=== PATIENT | male | born 1970 | race Caucasian/White ===

== ENCOUNTER 2017-12-11 18:25 | Emergency (ER) | payer BC, SELFPAY ==
[2017-12-11 18:27] VITALS: BP 162/107; PULSE 121; RESP 18; TEMP 37.3; O2SAT 98; BMI 59.8
--- NOTE | 2017-12-11 19:00 | CT_ITS ---
STUDY: CT ABDOMEN AND PELVIS WITH CONTRAST REASON FOR EXAM: Male, 47 years old. Diverticulitis. RADIATION DOSAGE (If Supplied By Facility): CTDIvol = ( 28.35 ) mGy, DLP = ( 1423.44 ) mGycm TECHNIQUE: Transaxial images were obtained from the dome of the diaphragm to the symphysis pubis without oral contrast. 100ML ml of Isovue 300 contrast was administered. Sagittal and coronal images were reconstructed. Individualized dose optimization techniques were used for this CT. COMPARISON: None. FINDINGS: The visualized lung bases are unremarkable. The visualized portions of the heart are within normal limits. Normal liver. Normal gallbladder and extrahepatic biliary system. Normal spleen. Normal pancreas. Normal bilateral adrenal glands. Normal right kidney. Normal left kidney. Normal visualized stomach. Normal small intestine. There is noted multiple diverticula of the sigmoid with mild areas of inflammatory stranding as seen on series 1002 image 118 with no evidence of large fluid collection or abscess. There is non-visualization of the appendix. Normal abdominal aorta. Normal inferior vena cava. Normal retroperitoneum. Normal urinary bladder. Normal abdominal wall. Normal osseous structures. CT/Abdomen/Pelvis WITH Contrast IMPRESSION: 1. Findings consistent with mild sigmoid diverticulitis as above. No evidence of large fluid collection or abscess. Electronically Signed: Jhonatan La DO at 21:26 EDT , Service support ,
--- NOTE | 2017-12-11 19:08 | ED.DCSUM_ITS ---
- ER Visit Summary Date of Service: 12/11/17 Chief Complaint: Abdominal pain History of Present Illness: The patient is a 47 M presenting with abdominal pain ?8 days. Patient states he has a history of diverticulitis in the past and this feels similar. He has nausea with no vomiting. He denies diarrhea or constipation. He has had decreased appetite. Denies urinary complaints. Denies fever. Denies other complaints. Physical Examination: Vitals are stable. Patient is afebrile. Alert no acute distress. HEENT exam is unremarkable. Neck is supple. Lungs are clear and equal bilaterally. Heart is regular rate and rhythm. Abdomen is soft, obese, bilateral lower quadrant tenderness, no rebound or guarding Extremities are unremarkable. Skin is warm and dry. No focal neurologic deficit. Remainder of exam is unremarkable. Emergency Department Course and Treatment: Patient is given morphine, Zofran. CBC, chemistries unremarkable except glucose 179. Urinalysis shows 0-5 white blood cells, [address] abdomen pelvis shows findings consistent with mild sigmoid diverticulitis. No evidence of large fluid collection or abscess. Patient was given Cipro, Flagyl. Advised to follow-up with his primary care physician. Advised return to ED if worsening complaints. Disposition: Discharge home Impression: Diverticulitis This note was generated with [employer] dictation software. It may contain incorrect words, spelling, and punctuation that were not noted in review of the chart prior to signing ED Disposition - Plan for ED Patient: Chief Complaint: Abd Pain Referrals: Care Physician,No Primary [Primary Care Provider] -
[2017-12-11 19:11] LABS: Bacteria 0 SEEN /hpf (None Seen); Red Blood Cells-Urine 0 SEEN /hpf (0-5); Squamous Epithelial Cells - UA 0 SEEN /hpf (0-5)
[2017-12-11 19:18] LABS: Absolute Lymphocyte Count 2.53 X10^3/ul (0.83-4.51); Basophil# 0.04 X10^3/uL; Basophil% 0.5 % (0-1); Eosinophil# 0.35 X10^3/uL; Hematocrit 46.6 % (40-54); Hemoglobin 15.9 g/dl (13.0-16.5); Lymphocyte # 2.53 X10^3/ul (4.0); Mean Corp Hgb Conc 34.1 g/gl (32-36); Mean Corpuscular Hgb 29.6 pg (27.0-32.0); Mean Corpuscular Volume 86.6 fL (80-94); Mean Platelet Vol. 11.8 fl (6.2-12.0); Monocyte# 0.83 X10^3/uL; Monocyte% 9.5 % (0-10); Neutrophil # 4.95 X10^3/uL (2.7-7.7); Neutrophil % 56.9 % (47-70); POSITIVE COUNT NO; POSITIVE DIFFERENTIAL NO; POSITIVE MORPHOLOGY NO; Platelet Count 150 K/mm3 (150-450); RBC Distribution Width CV 13.4 % (11.6-14.6); RBC Distribution Width SD 42.4 fl (35.1-43.9); Red Blood Count 5.38 M/mm3 (4.6-6.2); White Blood Count 8.7 K/mm3 (4.4-11.0)
--- NOTE | 2017-12-11 19:20 | NURSING ---
PT REFUSED PAIN MEDS AT THIS TIME.
[2017-12-11 19:24] LABS: Anion Gap 9 (5-15); BUN 7 mg/dL (7-18); BUN/Creat Ratio 7.1 RATIO (10-20); Calcium,Total 11.5 mg/dL (8.5-10.1); Chloride 103 mmol/L (98-107); Creatinine, Serum 0.99 mg/dL (0.70-1.30); EST Glomerular Filtration Rate 86 mL/min (>60); Est Glom Filt Rate - Afr Amer 104 mL/min (>60); Estimated Creatinine Clearance 106.09 ml/min; Glucose 179 mg/dL (74-106); Potassium 4.1 mmol/L (3.5-5.1); Sodium Level 137 mmol/L (136-145)
[2017-12-11 19:38] LABS: Color, Urine Amber (Yellow); Glucose, Dipstick Normal (Normal); Ketone-Dipstick 50 mg/dl (Negative); Leukocyte Esterase-Dipstick 25 /ul (Negative); Nitrite-Dipstick Positive (Negative); Occult Blood-Urine Negative /ul (Negative); Protein-Dipstick 100 mg/dl (Negative); Urine Bilirubin Dipstick Negative (Negative); Urine Clarity Sl. Cloudy (Clear); Urine Urobilinogen 4 mg/dl (Normal)
[2017-12-11 19:47] LABS: White Blood Cells 0-5 SEEN /hpf (0-5)
[2017-12-11 19:48] LABS: Fine Granular Cast- Urine 0-5 SEEN /lpf (0-5); Hyaline Cast 0-5 SEEN /lpf (0-5); Mucous, Urine 2+ /hpf (<or=2+)
[2017-12-11 19:49] LABS: Calcium Oxalate Crystals Ur 1+ /hpf (<or=2+)
[2017-12-11 20:46] VITALS: PULSE 90; RESP 18; O2SAT 97
[2017-12-11 20:48] VITALS: BP 154/87
--- NOTE | 2017-12-11 22:52 | ED.DEP ---
ED Disposition - Plan for ED Patient: Chief Complaint: Abd Pain Instructions: ED Diverticulitis Prescriptions: Metronidazole [Flagyl] 500 mg PO Q8H #21 tablet Naproxen [Naprosyn] 500 mg PO BID PRN #20 tablet Ciprofloxacin [Cipro] 500 mg PO BID #14 tablet Referrals: Care Physician,No Primary [Primary Care Provider] -
[2017-12-11] MEDS: Naproxen 500 MG Tablet PO (22:56)
[2017-12-11] MEDS: Ciprofloxacin 500 MG Tablet PO (22:56)
[2017-12-11] MEDS: metroNIDAZOLE 500 MG Tablet PO (22:56)
[2017-12-11 23:07] VITALS: BP 140/80; PULSE 76; RESP 18; O2SAT 94
== END 2017-12-11 23:17 | disposition home or self-care (01) ==
PROVIDERS: Emergency Provider Emergency Medicine
DX: K57.32 Diverticulitis of large intestine without perforation or abscess without bleeding (principal); Z87.19 Personal history of other diseases of the digestive system
CPT/HCPCS: 74177; 80048; 81001; 85025; 99285; J7030; Q9967; J2405

== ENCOUNTER 2017-12-12 13:35 | Inpatient (IN) | payer BC, SELFPAY ==
[2017-12-12 13:36] VITALS: BP 144/92; PULSE 123; RESP 16; TEMP 36.8; O2SAT 97; BMI 59.7
--- NOTE | 2017-12-12 13:57 | ED.VISSUMM ---
- ER Visit Summary Date of Service: 12/12/17 Chief Complaint: Abdominal pain History of Present Illness: The patient is a 47 M presents to the emergency department with worsening abdominal pain. The patient was seen here yesterday. At that time, he was having abdominal pain for about a week. He underwent CT of the abdomen and pelvis which did confirm uncomplicated diverticulitis. The patient was started on Cipro and Flagyl. He was given Naprosyn. He states he has been taking the antibiotics. When he woke today, his pain was worse. He describes it as a band across his abdomen. He denies any fevers or chills. He has been nauseated to did have some diarrhea. He states the pain worsened on his way here. He states now, the pain is mildly improved, but he still having significant cramping across his abdomen. He has had diverticulitis a total of 7 times. He has no history of abdominal surgery. Physical Examination: Vital signs reviewed General: Well-nourished, well-developed Head: Normocephalic, atraumatic Eyes: Pupils equal and reactive, extraocular muscles intact Neck, supple, no lymphadenopathy Heart: Regular rate and rhythm Respiratory: No distress, clear bilaterally Abdomen: Soft, nontender, nondistended, no peritoneal signs Back: Nontender Extremities: Nontender, no edema, no cords Skin: Normal color no rash Neuro: Alert and oriented, no focal or lateralizing deficits Test Results: [] Emergency Department Course and Treatment: The patient presents with increasing pain despite treatment with oral antibiotics. He was mildly tender, but had no focal rebound or guarding. No peritoneal signs. IV was established. He was treated with antiemetics and analgesics with some improvement. The patient did complain of trace chest pain when he felt like he had to belch. EKG was obtained which was unremarkable. Patient does have mild elevation of his lactate of 2.5. However, in light of his infection I do feel it is likely the cause. The patient was started on broad-spectrum IV antibiotics. Given his persistent pain I do feel that he will require admission for IV antibiotics and pain control. Patient was discussed with the hospitalist and surgery. He will be admitted at this time. Treatment Plan: [] Disposition: Admission Impression: 1. Diverticulitis This note was generated with [employer] software. It may contain incorrect words, spelling, and punctuation that were not noted in review of the chart prior to signing ED Disposition - Plan for ED Patient: Chief Complaint: Abd Pain Referrals: Care Physician,No Primary [Primary Care Provider] -
[2017-12-12] MEDS: 0.9% Normal Saline 1,000 ML 1000 ML IV (14:04)
[2017-12-12] MEDS: Morphine 4 MG/ML Syringe IV ×2 (14:04→19:40)
[2017-12-12 14:17] LABS: Absolute Lymphocyte Count 2.69 X10^3/ul (0.83-4.51); Absolute Neutrophil Count 8.1 X10^3/uL (2.0-7.7); Basophil# 0.04 X10^3/uL; Basophil% 0.3 % (0-1); Eosinophils% 1.7 % (0-5); Hematocrit 48.1 % (40-54); Hemoglobin 16.3 g/dl (13.0-16.5); Lymphocyte # 2.69 X10^3/ul (4.0); Lymphocyte % 22.3 % (19-41); Mean Corp Hgb Conc 33.9 g/gl (32-36); Mean Corpuscular Hgb 29.5 pg (27.0-32.0); Mean Platelet Vol. 11.5 fl (6.2-12.0); Monocyte# 0.99 X10^3/uL; Monocyte% 8.2 % (0-10); Neutrophil # 8.12 X10^3/uL (2.7-7.7); Neutrophil % 67.4 % (47-70); POSITIVE COUNT NO; POSITIVE DIFFERENTIAL NO; POSITIVE MORPHOLOGY NO; Platelet Count 179 K/mm3 (150-450); RBC Distribution Width CV 13.6 % (11.6-14.6); RBC Distribution Width SD 43.3 fl (35.1-43.9); Red Blood Count 5.53 M/mm3 (4.6-6.2); White Blood Count 12.1 K/mm3 (4.4-11.0)
--- NOTE | 2017-12-12 14:17 | EKGRS_ITS ---
Test Reason : ABNL PAIN Blood Pressure : / mmHG Vent. Rate : 080 BPM Atrial Rate : 080 BPM P-R Int : 152 ms QRS Dur : 090 ms QT Int : 354 ms P-R-T Axes : 042 028 015 degrees QTc Int : 408 ms Normal sinus rhythm Normal ECG Confirmed by DANIKA ARMENTA, MEGAN ([id number]), movie editor ANN AREVALO ([id number]) on 12/13/2017 12:58:10 PM Referred By: KALIE Confirmed By:MEGAN GARNICA MD
[2017-12-12] MEDS: Ondansetron 4 MG/2 ML Vial IV (14:18)
[2017-12-12 14:28] LABS: AST(SGOT) 76 U/L (15-37); Alanine Aminotransfer ALT/SGPT 96 U/L (16-61); Albumin, Serum 3.7 g/dL (3.2-5.0); Alkaline Phosphatase 97 U/L (45-117); Anion Gap 10 (5-15); BUN 8 mg/dL (7-18); Calcium,Total 11.2 mg/dL (8.5-10.1); Chloride 104 mmol/L (98-107); EST Glomerular Filtration Rate 85 mL/min (>60); Est Glom Filt Rate - Afr Amer 103 mL/min (>60); Estimated Creatinine Clearance 105.03 ml/min; Globulin 3.8 g/dL (2.2-4.2); Glucose 210 mg/dL (74-106); Protein, Total 7.5 g/dL (6.4-8.2); Sodium Level 139 mmol/L (136-145)
[2017-12-12 14:33] LABS: Lactic Acid 2.5 mmol/L (0.4-2.0)
--- NOTE | 2017-12-12 14:33 | ED.RN ---
LAB RESULTED LACTIC 2.5, PHYSICIAN NOTIFIED
[2017-12-12 15:03] VITALS: BMI 59.7
--- NOTE | 2017-12-12 15:04 | CT_ITS ---
STUDY: CT ABDOMEN AND PELVIS WITHOUT CONTRAST REASON FOR EXAM: Male, 47 years old. Mid abdominal pain RADIATION DOSAGE (If Supplied By Facility): CTDIvol = ( 34.45 ) mGy, DLP = ( 2100.46 ) mGycm TECHNIQUE: Transaxial images were obtained from the dome of the diaphragm to the symphysis pubis without oral contrast, and without intravenous contrast. Sagittal and coronal images were reconstructed. Individualized dose optimization techniques were used for this CT. COMPARISON: December 11, 2018 FINDINGS: The visualized lung bases are unremarkable. The visualized portions of the heart are within normal limits. Liver is prominent and fatty infiltrated without mass or bile duct dilatation. The appears to be very subtle hypoattenuated density within the gallbladder possibly representing sludge or tiny poorly calcified stones.. Mild prominence of the spleen demonstrating normal attenuation . Diffusely fatty infiltrated pancreas Normal bilateral adrenal glands. Normal right kidney. Normal left kidney. Normal visualized stomach. There are several distended loops of small bowel within the left upper and mid abdomen without definitive evidence for transition point which may be consistent with focal ileus possibly due to enteritis. There are subcentimeter mesenteric nodes and stranding in the fat consistent with nonspecific lymphadenitis Diverticular disease of the descending and sigmoid colon with very mild stranding in the fat and possibility of associated mild diverticulitis not excluded. Appendix not visualized Normal abdominal aorta. Normal inferior vena cava. Normal retroperitoneum. Normal urinary bladder. Normal abdominal wall. Lumbar spine demonstrates moderate spondylosis CT/Abdomen/Pel W ORAL Cont Only IMPRESSION: Distended loops of small bowel in the left upper and mid abdomen which may be consistent with nonspecific focal ileus in association with mesenteric lymphadenitis. No definite evidence for small bowel obstruction transition point. Cannot exclude coexisting mild sigmoid diverticulitis Electronically Signed: Jose Angel Jones MD at 17:31 EDT , Service support ,
[2017-12-12] MEDS: HYDROmorphone 1 MG/ML Syringe IV ×3 (15:18→21:14)
[2017-12-12 15:41] VITALS: PULSE 90; RESP 18
[2017-12-12 16:01] VITALS: BP 156/88; PULSE 81; RESP 18; O2SAT 93
[2017-12-12 18:02] VITALS: RESP 16
[2017-12-12 18:05] LABS: Reflex Lactate? Y
[2017-12-12 18:46] VITALS: BMI 59.3
[2017-12-12 18:51] VITALS: BP 158/96; PULSE 84; RESP 16; TEMP 36.4; O2SAT 94
--- NOTE | 2017-12-12 18:52 | PCM.HP.STD ---
Problem List (1) Mid abdominal pain Status: Acute (2) Diverticulitis Status: Acute History of Present Illness Date of Admission: 12/12/17 Chief Complaint: Mid abdominal pain, diverticulitis The patient is a 47 year old M who was seen in the emergency room at [facility] with chief complaint of midabdominal pain which started this morning, there is no vomiting, he did have 2 episodes of diarrhea, he denies any hematochezia, he denies any chills or fever. Patient states he has had several episodes of diverticulitis, he does not remember anyone telling him that he needed surgery after any of his diverticulitis episodes, and the patient states that he has not sure he is never seen a surgeon. Patient was seen in the emergency room yesterday with left lower quadrant abdominal pain was diagnosed as having diverticulitis, he was placed on oral antibiotics which he has been taking, and discharged home.. Evaluation in the emergency room today included labs which showed an elevated white blood cell count 12.1, lactic acid was 2.5, glucose was 210, and the patient was afebrile at 98.3. Hospitalist service was called to admit the patient for diverticulitis, I requested that the emergency room physician contact general surgery and general surgery requested a oral contrasted CT which was performed that showed no evidence of perforation. It was noted on this second CT that the patient had what was believed to be an ileus. Patient will be admitted to [facility] for acute recurrent diverticulitis and ileus, he will be given IV fluids and IV antibiotics, I do not believe the patient has sepsis or severe sepsis, patient had initial tachycardia on his first set of vital signs, afterwards there was no tachycardia and therefore I do not believe he meets SIRS criteria. Past Medical History Past Medical History (Chronic Problems): Chronic Problems Diverticulosis of colon (Chronic) Steatohepatitis, nonalcoholic (Chronic) GERD (gastroesophageal reflux disease) (Chronic) Morbid obesity with BMI of 50.0-59.9, adult (Chronic) Allergies corn [[place]] Allergy (Verified 12/12/17 13:39) Other venom-honey bee [bee venom (honey bee)] Allergy (Verified 12/12/17 13:39) Swelling wheat Allergy (Verified 12/12/17 13:39) Other Home Medications: Ambulatory Orders Medication Instructions Recorded Ciprofloxacin [Cipro] 500 mg PO BID #14 tablet 12/11/17 Metronidazole [Flagyl] 500 mg PO Q8H #21 tablet 12/11/17 Naproxen [Naprosyn] 500 mg PO BID PRN #20 tablet 12/11/17 Surgical History: no surgical history Psychiatric History: No pertinent psych hx Lives: Spouse/ Significant Other Smoking Status: Never smoker Tobacco Use: Non-smoker Alcohol: None Drugs: None - *Family History Maternal History Items: - Paternal History Items: Heart Disease - in his 40s Review of Systems Constitutional: Denies: Anorexia, Chills, Fever, Night Sweats, Malaise, Weakness, Weight Change, Fatigue Eyes: Denies: Blurred vision, Cataracts, Conjunctivae Inflammation, Double vision, Drainage HEENT: Denies: Difficulty Swallowing, Dysphasia, Ear Pain, Eye Pain, Head Aches, Hearing Changes, Nasal bleeding, Nasal Congestion, Post Nasal Drip Cardiovascular: Denies: Chest Pain, Claudication, Chest Pressure, Chest Tightness, Edema, Heaviness, Orthopnea, Palpitations, Paroxysmal Noc. Dyspnea, Syncope Respiratory: Denies: Cough, Hemoptysis, Pleuritic Pain, Shortness of breath at rest, Shortness of breath upon exertion, Sputum production, Wheezing Gastrointestinal: Reports: Abdominal Pain, Diarrhea. Denies: Constipation, Dyspepsia, Hematemesis, Hematochezia, Nausea, Melena, Vomiting Genitourinary: Denies: Dysuria, Frequency, Hematuria, Hesitancy, Incontinence, Nocturia, Urgency Musculoskeletal: Denies: Back Pain, Foot Pain, Hand Pain, Joint Pain, Joint stiffness, Joint swelling, Joint Tenderness, Leg Pain Skin: Denies: Dryness, Jaundice, Pruritis, Rash Neurological: Denies: Blurred vision, Double vision, Change in Speech, Slurred speech, Difficulty swallowing, Focal weakness, Headaches, Incoordination, Numbness, Tingling Psychiatric: Denies: Anxiety, Depression, Homicidal Ideations, Suicidal Ideations Endocrine: Denies: Change in Body Habitus, Heat/ Cold Intolerance, Polydipsia, Polyuria Hematologic/ Lymphatic: Denies: Adenopathy, Anemia, Easy Bruising, Easy Bleeding, Petechiae, Purpura VTE Information - Inpt Only VTE Present on Admission: No VTE Mechan Device Prophylaxis: None VTE Pharm Prophylaxis ordered?: Yes Patient Problems: Active and Suspected Problems Mid abdominal pain (Acute) Diverticulitis (Acute) - Physical Exam General: Alert, Oriented x3, Cooperative, No apparent distress, Well developed, Well nourished HEENT: Atraumatic, PERRLA, EOMI, Normocephalic Oral: Moist Mucosa Neck: Supple, No JVD, Negative Carotid Bruits, No Nuchal Rigidity, Trachea Midline, Thyroid Normal Size and Texture Lungs: Clear to auscultation, Normal air movement, No rhonchi, No wheeze Cardiovascular: Regular rate, Regular Rhythm, Normal S1, Normal S2, No murmurs, No Ectopic Activity, PMI Normal, No rub noted, No Gallop Abdomen: Bowel Sounds Present, Soft, Hypoactive Bowel Sounds, Obese, Tender - Mid abdominal tenderness is noted to palpation which is moderate, there is slight abdominal tenderness and left lower quadrant to palpation, No hernias noted Extremities: No clubbing, No cyanosis, Capillary Refill Less than 3 Seconds, Edema - +1 mm pitting edema is noted over the patient's lower legs Skin: No rashes, No breakdown Musculoskeletal: No Tenderness to Palpation of Joints or Extremities Neurological: Cranial nerves II-XII grossly intact, Neuro grossly intact, Sensory exam intact to light touch and pain, Coordination normal Psych/Mental Status: Normal Affect, Appropriate, Alert and oriented to time, place, person, mood and affect Vital Signs Temp Pulse Resp BP Pulse Ox 97.5 F L 84 16 171/105 H 94 12/12/17 18:51 12/12/17 18:51 12/12/17 18:51 12/12/17 18:51 12/12/17 18:51 Oxygen Delivery Method Room Air Weight: 210 kg Body Mass Index (BMI) 59.3 Laboratory Tests Past 24 Hrs 12/12/17 18:25 Lactic Acid Pending Assessment/Plan All Active Problems Mid abdominal pain (Acute) Diverticulitis (Acute) #1 acute recurrent diverticulitis-patient will be admitted to [facility] 3, IV Cipro and Flagyl will be given, labs will be monitored, patient will be seen by general surgery #2 ileus-possibly secondary to acute diverticulitis, patient will be placed on clear liquids and seen by general surgery #3 morbid obesity #4 hyperglycemia-hemoglobin A1c will be obtained Again, I do not believe the patient has severe sepsis Code Visit Inpatient E&M: 19843 Init Hosp L3
[2017-12-12] MEDS: 0.9% Normal Saline 1,000 ML 100 ML IV (18:55)
[2017-12-12] MEDS: Morphine 2 MG/ML Syringe IV (18:55)
--- NOTE | 2017-12-12 19:02 | HP.PCM_ITS ---
Problem List (1) Mid abdominal pain Status: Acute (2) Diverticulitis Status: Acute History of Present Illness Date of Admission: 12/12/17 Chief Complaint: Mid abdominal pain, diverticulitis The patient is a 47 year old M who was seen in the emergency room at [facility] with chief complaint of midabdominal pain which started this morning, there is no vomiting, he did have 2 episodes of diarrhea, he denies any hematochezia, he denies any chills or fever. Patient states he has had several episodes of diverticulitis, he does not remember anyone telling him that he needed surgery after any of his diverticulitis episodes, and the patient states that he has not sure he is never seen a surgeon. Patient was seen in the emergency room yesterday with left lower quadrant abdominal pain was diagnosed as having diverticulitis, he was placed on oral antibiotics which he has been taking, and discharged home.. Evaluation in the emergency room today included labs which showed an elevated white blood cell count 12.1, lactic acid was 2.5, glucose was 210, and the patient was afebrile at 98.3. Hospitalist service was called to admit the patient for diverticulitis, I requested that the emergency room physician contact general surgery and general surgery requested a oral contrasted CT which was performed that showed no evidence of perforation. It was noted on this second CT that the patient had what was believed to be an ileus. Patient will be admitted to [facility] for acute recurrent diverticulitis and ileus, he will be given IV fluids and IV antibiotics, I do not believe the patient has sepsis or severe sepsis, patient had initial tachycardia on his first set of vital signs, afterwards there was no tachycardia and therefore I do not believe he meets SIRS criteria. Past Medical History Past Medical History (Chronic Problems): Chronic Problems Diverticulosis of colon (Chronic) Steatohepatitis, nonalcoholic (Chronic) GERD (gastroesophageal reflux disease) (Chronic) Morbid obesity with BMI of 50.0-59.9, adult (Chronic) Allergies corn [[place]] Allergy (Verified 12/12/17 13:39) Other venom-honey bee [bee venom (honey bee)] Allergy (Verified 12/12/17 13:39) Swelling wheat Allergy (Verified 12/12/17 13:39) Other Home Medications: Ambulatory Orders Medication Instructions Recorded Ciprofloxacin [Cipro] 500 mg PO BID #14 tablet 12/11/17 Metronidazole [Flagyl] 500 mg PO Q8H #21 tablet 12/11/17 Naproxen [Naprosyn] 500 mg PO BID PRN #20 tablet 12/11/17 Surgical History: no surgical history Psychiatric History: No pertinent psych hx Lives: Spouse/ Significant Other Smoking Status: Never smoker Tobacco Use: Non-smoker Alcohol: None Drugs: None - *Family History Maternal History Items: - Paternal History Items: Heart Disease - in his 40s Review of Systems Constitutional: Denies: Anorexia, Chills, Fever, Night Sweats, Malaise, Weakness , Weight Change, Fatigue Eyes: Denies: Blurred vision, Cataracts, Conjunctivae Inflammation, Double vision, Drainage HEENT: Denies: Difficulty Swallowing, Dysphasia, Ear Pain, Eye Pain, Head Aches , Hearing Changes, Nasal bleeding, Nasal Congestion, Post Nasal Drip Cardiovascular: Denies: Chest Pain, Claudication, Chest Pressure, Chest Tightness, Edema, Heaviness, Orthopnea, Palpitations, Paroxysmal Noc. Dyspnea, Syncope Respiratory: Denies: Cough, Hemoptysis, Pleuritic Pain, Shortness of breath at rest, Shortness of breath upon exertion, Sputum production, Wheezing Gastrointestinal: Reports: Abdominal Pain, Diarrhea. Denies: Constipation, Dyspepsia, Hematemesis, Hematochezia, Nausea, Melena, Vomiting Genitourinary: Denies: Dysuria, Frequency, Hematuria, Hesitancy, Incontinence, Nocturia, Urgency Musculoskeletal: Denies: Back Pain, Foot Pain, Hand Pain, Joint Pain, Joint stiffness, Joint swelling, Joint Tenderness, Leg Pain Skin: Denies: Dryness, Jaundice, Pruritis, Rash Neurological: Denies: Blurred vision, Double vision, Change in Speech, Slurred speech, Difficulty swallowing, Focal weakness, Headaches, Incoordination, Numbness, Tingling Psychiatric: Denies: Anxiety, Depression, Homicidal Ideations, Suicidal Ideations Endocrine: Denies: Change in Body Habitus, Heat/ Cold Intolerance, Polydipsia, Polyuria Hematologic/ Lymphatic: Denies: Adenopathy, Anemia, Easy Bruising, Easy Bleeding , Petechiae, Purpura VTE Information - Inpt Only VTE Present on Admission: No VTE Mechan Device Prophylaxis: None VTE Pharm Prophylaxis ordered?: Yes Patient Problems: Active and Suspected Problems Mid abdominal pain (Acute) Diverticulitis (Acute) - Physical Exam General: Alert, Oriented x3, Cooperative, No apparent distress, Well developed, Well nourished HEENT: Atraumatic, PERRLA, EOMI, Normocephalic Oral: Moist Mucosa Neck: Supple, No JVD, Negative Carotid Bruits, No Nuchal Rigidity, Trachea Midline, Thyroid Normal Size and Texture Lungs: Clear to auscultation, Normal air movement, No rhonchi, No wheeze Cardiovascular: Regular rate, Regular Rhythm, Normal S1, Normal S2, No murmurs, No Ectopic Activity, PMI Normal, No rub noted, No Gallop Abdomen: Bowel Sounds Present, Soft, Hypoactive Bowel Sounds, Obese, Tender - Mid abdominal tenderness is noted to palpation which is moderate, there is slight abdominal tenderness and left lower quadrant to palpation, No hernias noted Extremities: No clubbing, No cyanosis, Capillary Refill Less than 3 Seconds, Edema - +1 mm pitting edema is noted over the patient's lower legs Skin: No rashes, No breakdown Musculoskeletal: No Tenderness to Palpation of Joints or Extremities Neurological: Cranial nerves II-XII grossly intact, Neuro grossly intact, Sensory exam intact to light touch and pain, Coordination normal Psych/Mental Status: Normal Affect, Appropriate, Alert and oriented to time, place, person, mood and affect Vital Signs Temp Pulse Resp BP Pulse Ox 97.5 F L 84 16 171/105 H 94 12/12/17 18:51 12/12/17 18:51 12/12/17 18:51 12/12/17 18:51 12/12/17 18:51 Oxygen Delivery Method Room Air Weight: 210 kg Body Mass Index (BMI) 59.3 Laboratory Tests Past 24 Hrs 12/12/17 18:25 Lactic Acid Pending Assessment/Plan All Active Problems Mid abdominal pain (Acute) Diverticulitis (Acute) #1 acute recurrent diverticulitis-patient will be admitted to [facility] 3, IV Cipro and Flagyl will be given, labs will be monitored, patient will be seen by general surgery #2 ileus-possibly secondary to acute diverticulitis, patient will be placed on clear liquids and seen by general surgery #3 morbid obesity #4 hyperglycemia-hemoglobin A1c will be obtained Again, I do not believe the patient has severe sepsis Code Visit Inpatient E&M: 95583 Init Hosp L3
[2017-12-12 19:27] LABS: Lactic Acid 1.7 mmol/L (0.4-2.0)
--- NOTE | 2017-12-12 20:07 | PCM.CONS.GEN ---
Reason for Consult Date of Consultation: 12/12/17 History of Present Illness: The patient is a 47 year old M presented to the ER due to increasing epigastric pain. Patient has had lower abdominal pain for about the last 9 days to 2 weeks. He states he has not been eating much for the last 9 days he has been taking ibuprofen on an empty stomach. He states he has been taking about 400 every 4-5 hours in the last several days. Patient did come to the ER yesterday and had a CT scan which was consistent with mild acute diverticulitis and was sent home with oral antibiotics of Cipro and Flagyl as well as Naprosyn. Patient came back due to new increasing epigastric pain. Patient states that off and on during the last 2 weeks he has felt like things have not moved well in his abdomen. Patient states he has a history of 7 previous episodes of diverticulitis and he has gotten antibiotics for some of these and also she has had CTs proven in the past as well. Patient denies ever having a colonoscopy or seen a surgeon. Patient also admits to daily reflux prior to this epigastric pain, patient states his pain is usually burning up the esophagus. Patient denies using any PPI or H2 inhibitor. Patient states he has had a small amount of diarrhea today but has not been eating much over the last 9 days as well. Past Medical History Past Medical History (Chronic Problems): Chronic Problems Diverticulosis of colon (Chronic) Steatohepatitis, nonalcoholic (Chronic) GERD (gastroesophageal reflux disease) (Chronic) Morbid obesity with BMI of 50.0-59.9, adult (Chronic) Allergies corn [[place]] Allergy (Verified 12/12/17 13:39) Other venom-honey bee [bee venom (honey bee)] Allergy (Verified 12/12/17 13:39) Swelling wheat Allergy (Verified 12/12/17 13:39) Other Home Medications: Ambulatory Orders Medication Instructions Recorded Ciprofloxacin [Cipro] 500 mg PO BID #14 tablet 12/11/17 Metronidazole [Flagyl] 500 mg PO Q8H #21 tablet 12/11/17 Naproxen [Naprosyn] 500 mg PO BID PRN #20 tablet 12/11/17 Surgical History: - - Bilateral carpal tunnel surgery Psychiatric History: No pertinent psych hx Lives: Spouse/ Significant Other Smoking Status: Never smoker Tobacco Use: Non-smoker Alcohol: None Drugs: None - *Family History Maternal History Items: - Paternal History Items: Heart Disease - in his 40s Review of Systems Eyes: Denies: Blurred vision HEENT: Denies: Difficulty Swallowing Cardiovascular: Denies: Chest Pain Respiratory: Reports: Shortness of Breath - With exertion Gastrointestinal: Reports: Abdominal Pain, Nausea Patient Problems: Active and Suspected Problems Mid abdominal pain (Acute) Diverticulitis (Acute) - Physical Exam General: Alert, Oriented x3, Cooperative, - HEENT: Atraumatic Abdomen: Soft, Distended - Mild, Tender - Epigastric and left upper quadrant, no guarding or rebound Skin: No rashes Neurological: Cranial nerves II-XII grossly intact Psych/Mental Status: Normal Affect Vital Signs Temp Pulse Resp BP Pulse Ox 97.5 F L 84 16 158/96 H 94 12/12/17 18:51 12/12/17 18:51 12/12/17 18:51 12/12/17 18:51 12/12/17 18:51 Oxygen Delivery Method Room Air Weight: 462 lb 15.532 oz Body Mass Index (BMI) 59.3 Laboratory Tests Past 24 Hrs 12/12/17 18:25 Lactic Acid 1.7 Assessment/Plan All Active Problems Mid abdominal pain (Acute) Diverticulitis (Acute) 47-year-old male with acute sigmoid diverticulitis, GERD/possible gastritis 1. N.p.o.sips and chips/IV fluids/strict I's and O's. 2. Diverticulitis-continue Cipro and Flagyl IV, keep n.p.o. until pain is resolved. 3. Epigastric pain-history of GERD and history of taking ibuprofen recently on empty stomach for abdominal pain. Protonix IV okay for Carafate before meals and at bedtime with half a glass of water to see if this helps with the pain. 4. Discussed with patient that in the future he will need colonoscopy in 6-8 weeks after the active diverticulitis has resolved as he has never had a colonoscopy previously. Also discussed with patient that he may benefit from her a referral for a bariatric surgeon due to his daily reflux, borderline diabetes and BMI of 59. Also discussed patient that he could discuss with the bariatric or colorectal surgeon for possible colectomy due to his multiple episodes of diverticulitis and due to his BMI of 59 would recommend colectomy to be done in a tertiary care center. Patient has has no further questions at this time. Tri Bender M.D. Pager: [phone] [facility] [address] [place] [address], Outpatient [place], [address] [place] [address] Office: [phone] Code Visit Inpatient E&M: 43713 Init Hosp L1
[2017-12-12 20:16] LABS: Hemoglobin A1c 9.2 % (4.2-6.3)
--- NOTE | 2017-12-12 20:16 | CON.PCM_ITS ---
Reason for Consult Date of Consultation: 12/12/17 History of Present Illness: The patient is a 47 year old M presented to the ER due to increasing epigastric pain. Patient has had lower abdominal pain for about the last 9 days to 2 weeks. He states he has not been eating much for the last 9 days he has been taking ibuprofen on an empty stomach. He states he has been taking about 400 every 4-5 hours in the last several days. Patient did come to the ER yesterday and had a CT scan which was consistent with mild acute diverticulitis and was sent home with oral antibiotics of Cipro and Flagyl as well as Naprosyn. Patient came back due to new increasing epigastric pain. Patient states that off and on during the last 2 weeks he has felt like things have not moved well in his abdomen. Patient states he has a history of 7 previous episodes of diverticulitis and he has gotten antibiotics for some of these and also she has had CTs proven in the past as well. Patient denies ever having a colonoscopy or seen a surgeon. Patient also admits to daily reflux prior to this epigastric pain, patient states his pain is usually burning up the esophagus. Patient denies using any PPI or H2 inhibitor. Patient states he has had a small amount of diarrhea today but has not been eating much over the last 9 days as well. Past Medical History Past Medical History (Chronic Problems): Chronic Problems Diverticulosis of colon (Chronic) Steatohepatitis, nonalcoholic (Chronic) GERD (gastroesophageal reflux disease) (Chronic) Morbid obesity with BMI of 50.0-59.9, adult (Chronic) Allergies corn [[place]] Allergy (Verified 12/12/17 13:39) Other venom-honey bee [bee venom (honey bee)] Allergy (Verified 12/12/17 13:39) Swelling wheat Allergy (Verified 12/12/17 13:39) Other Home Medications: Ambulatory Orders Medication Instructions Recorded Ciprofloxacin [Cipro] 500 mg PO BID #14 tablet 12/11/17 Metronidazole [Flagyl] 500 mg PO Q8H #21 tablet 12/11/17 Naproxen [Naprosyn] 500 mg PO BID PRN #20 tablet 12/11/17 Surgical History: - - Bilateral carpal tunnel surgery Psychiatric History: No pertinent psych hx Lives: Spouse/ Significant Other Smoking Status: Never smoker Tobacco Use: Non-smoker Alcohol: None Drugs: None - *Family History Maternal History Items: - Paternal History Items: Heart Disease - in his 40s Review of Systems Eyes: Denies: Blurred vision HEENT: Denies: Difficulty Swallowing Cardiovascular: Denies: Chest Pain Respiratory: Reports: Shortness of Breath - With exertion Gastrointestinal: Reports: Abdominal Pain, Nausea Patient Problems: Active and Suspected Problems Mid abdominal pain (Acute) Diverticulitis (Acute) - Physical Exam General: Alert, Oriented x3, Cooperative, - HEENT: Atraumatic Abdomen: Soft, Distended - Mild, Tender - Epigastric and left upper quadrant, no guarding or rebound Skin: No rashes Neurological: Cranial nerves II-XII grossly intact Psych/Mental Status: Normal Affect Vital Signs Temp Pulse Resp BP Pulse Ox 97.5 F L 84 16 158/96 H 94 12/12/17 18:51 12/12/17 18:51 12/12/17 18:51 12/12/17 18:51 12/12/17 18:51 Oxygen Delivery Method Room Air Weight: 462 lb 15.532 oz Body Mass Index (BMI) 59.3 Laboratory Tests Past 24 Hrs 12/12/17 18:25 Lactic Acid 1.7 Assessment/Plan All Active Problems Mid abdominal pain (Acute) Diverticulitis (Acute) 47-year-old male with acute sigmoid diverticulitis, GERD/possible gastritis 1. N.p.o.sips and chips/IV fluids/strict I's and O's. 2. Diverticulitis-continue Cipro and Flagyl IV, keep n.p.o. until pain is resolved. 3. Epigastric pain-history of GERD and history of taking ibuprofen recently on empty stomach for abdominal pain. Protonix IV okay for Carafate before meals and at bedtime with half a glass of water to see if this helps with the pain. 4. Discussed with patient that in the future he will need colonoscopy in 6-8 weeks after the active diverticulitis has resolved as he has never had a colonoscopy previously. Also discussed with patient that he may benefit from her a referral for a bariatric surgeon due to his daily reflux, borderline diabetes and BMI of 59. Also discussed patient that he could discuss with the bariatric or colorectal surgeon for possible colectomy due to his multiple episodes of diverticulitis and due to his BMI of 59 would recommend colectomy to be done in a tertiary care center. Patient has has no further questions at this time. Tri Bender M.D. Pager: [phone] [facility] [address] [place] [address], Outpatient [place], [address] [place] [address] Office: [phone] Code Visit Inpatient E&M: 01943 Init Hosp L1
[2017-12-12 20:43] LABS: Lipase 129 U/L (73-393)
[2017-12-12 20:52] VITALS: BP 157/98; PULSE 110; RESP 18; TEMP 36.4; O2SAT 96
[2017-12-12] MEDS: Ciprofloxacin 400 MG/200 ML BAG 200 MG IV (21:13)
[2017-12-12] MEDS: Heparin Injection (Vial) 5,000 UNIT/ML VIAL 5000 UNIT SC (21:14)
[2017-12-12] MEDS: Sucralfate 1 GM Tablet PO (21:14)
[2017-12-12] MEDS: HYDROmorphone 1 MG/ML Syringe 2 MG IV (23:21)
[2017-12-13] VITALS (12 sets, daily range): BP systolic 126–193; BP diastolic 75–132; PULSE 128–143; RESP 16–30; TEMP 36.3–36.9; O2SAT 94–98
[2017-12-13] MEDS: HYDROmorphone 1 MG/ML Syringe 2 MG IV ×3 (02:27→11:10)
[2017-12-13] MEDS: oxyCODONE 5 MG Tablet 10 MG PO (05:44)
[2017-12-13] MEDS: Sucralfate 1 GM Tablet PO (05:45)
[2017-12-13] MEDS: Heparin Injection (Vial) 5,000 UNIT/ML VIAL 5000 UNIT SC (05:45)
[2017-12-13] MEDS: 0.9% Normal Saline 1,000 ML 100 ML IV (05:46)
[2017-12-13 07:08] LABS: Anion Gap 16 (5-15); BUN 14 mg/dL (7-18); BUN/Creat Ratio 7.9 RATIO (10-20); Calcium,Total 11.7 mg/dL (8.5-10.1); Chloride 109 mmol/L (98-107); Creatinine, Serum 1.78 mg/dL (0.70-1.30); EST Glomerular Filtration Rate 44 mL/min (>60); Est Glom Filt Rate - Afr Amer 53 mL/min (>60); Estimated Creatinine Clearance 59.01 ml/min; Glucose 305 mg/dL (74-106); Potassium 4.7 mmol/L (3.5-5.1); Sodium Level 143 mmol/L (136-145)
[2017-12-13 07:09] LABS: Absolute Lymphocyte Count 1.69 X10^3/ul (0.83-4.51); Absolute Neutrophil Count 26.3 X10^3/uL (2.0-7.7); Basophil# 0.04 X10^3/uL; Basophil% 0.1 % (0-1); Lymphocyte # 1.69 X10^3/ul (4.0); Lymphocyte % 5.5 % (19-41); Mean Corp Hgb Conc 33.7 g/gl (32-36); Mean Corpuscular Volume 88.8 fL (80-94); Mean Platelet Vol. 12.3 fl (6.2-12.0); Monocyte% 9.4 % (0-10); Neutrophil # 26.32 X10^3/uL (2.7-7.7); Neutrophil % 84.8 % (47-70); Platelet Count 262 K/mm3 (150-450); RBC Distribution Width CV 14.1 % (11.6-14.6); RBC Distribution Width SD 45.5 fl (35.1-43.9); Red Blood Count 6.34 M/mm3 (4.6-6.2)
[2017-12-13 07:12] LABS: Hematocrit 56.3 % (40-54); POSITIVE COUNT YES; POSITIVE DIFFERENTIAL YES; POSITIVE MORPHOLOGY NO
[2017-12-13 07:13] LABS: Differential Indicated SCAN CRITERIA MET
--- NOTE | 2017-12-13 07:28 | CT_ITS ---
STUDY: CT ABDOMEN AND PELVIS WITHOUT CONTRAST REASON FOR EXAM: Male, 47 years old. Possible bowel perforation. RADIATION DOSAGE (If Supplied By Facility): CTDIvol = ( 24.18 ) mGy, DLP = ( 1425.68 ) mGycm TECHNIQUE: Transaxial images were obtained from the dome of the diaphragm to the symphysis pubis without oral contrast, and without intravenous contrast. Sagittal and coronal images were reconstructed. Individualized dose optimization techniques were used for this CT. COMPARISON: Comparison is made with prior study dated December 12, 2017. FINDINGS: The visualized lung bases are unremarkable. The visualized portions of the heart are within normal limits. There is decreased attenuation of the liver consistent with steatosis. Increased density seen within the gallbladder lumen most likely representing vicarious secretion of IV contrast. Normal spleen. Normal pancreas. Normal bilateral adrenal glands. Normal right kidney. Normal left kidney. There is a small hiatal hernia. The stomach is distended with oral contrast. Fluid-filled slightly dilated small bowel loops in the central abdomen. There are multiple colonic diverticula consistent with diverticulosis. There is non-visualization of the appendix. Normal abdominal aorta. Normal inferior vena cava. There is borderline retroperitoneal lymphadenopathy with enlarged nodes no greater than 10mm in the short axis diameter. Increased markings in the medial fragment of the root of the mesentery suggestive of a possible inflammatory change. Normal urinary bladder. Small amount of fluid in the pelvis. Normal abdominal wall. There are degenerative changes of the visualized lumbar spine. CT/Abdomen/Pelvis without Cont IMPRESSION: Diffuse fatty infiltration of the liver. The stomach is distended with air oral contrast. Questionable duodenal obstruction. Mildly fluid-filled distended small bowel loops in the midabdomen. Increased markings in the peritoneal fat at the level of the root of the mesentery suggestive of inflammatory change. Sigmoid diverticulosis. Small amount of free fluid in the pelvis. Electronically Signed: Saeed Leija MD at 8:36 EDT Tel [phone], Service support ,
--- NOTE | 2017-12-13 07:31 | PCM.PN.SRG ---
Patient Problems: Active and Suspected Problems Mid abdominal pain (Acute) Diverticulitis (Acute) Subjective: Patient has been tachycardic overnight 120s 130s, increased abdominal pain continued, increased white blood cell count 31 - Physical Exam General: Cooperative Abdomen: Soft, Distended - Moderate, Tender - Diffuse, mild rebound, no guarding Extremities: No clubbing, No cyanosis, No edema Vital Signs Temp Pulse Resp BP Pulse Ox 97.4 F L 128 H 16 147/100 H 98 12/13/17 02:24 12/13/17 02:24 12/13/17 02:24 12/13/17 02:24 12/13/17 02:24 Oxygen Delivery Method Room Air Weight: 462 lb 15.532 oz Body Mass Index (BMI) 59.3 Intake and Output for Last 24 Hours 12/11/17 12/12/17 12/13/17 23:59 23:59 23:59 Intake Total 1800 / 1800 Balance 1800 / 1800 Laboratory Tests Past 24 Hrs 12/12/17 12/13/17 12/13/17 18:25 06:28 06:28 WBC 31.0 H* RBC 6.34 H Hgb 19.0 H* Hct 56.3 H MCV 88.8 MCH 30.0 MCHC 33.7 RDW 14.1 RDW Differential 45.5 H Plt Count 262 MPV 12.3 H Immature Gran % (Auto) 0.200 Neut % (Auto) 84.8 H Lymph % (Auto) 5.5 L [place] % (Auto) 9.4 Eos % (Auto) 0.0 Baso % (Auto) 0.1 Absolute Neuts (auto) 26.3 H Absolute Lymphs (auto) 1.69 Total Counted Pending Sodium 143 Potassium 4.7 Chloride 109 H Carbon Dioxide 18.0 L Anion Gap 16 H BUN 14 Creatinine 1.78 H Estim Creat Clear Calc 59.01 Est GFR (MDRD) Af Amer 53 L Est GFR (MDRD) Non-Af 44 L BUN/Creatinine Ratio 7.9 L Glucose 305 H Lactic Acid 1.7 Calcium 11.7 H Medical Necessity - Tobacco Use Smoking Status: Never smoker Tobacco Use: Non-smoker Assessment/Plan All Active Problems Mid abdominal pain (Acute) Diverticulitis (Acute) 47-year-old male with acute sigmoid diverticulitis, GERD/possible gastritis, increased heart rate, increased leukocytosis 1. N.p.o.sips and chips/IV fluids/strict I's and O's. 2. Continue pain throughout the night, increased heart rate, increased leukocytosis will check a stat CT abdomen pelvis without contrast due to his increased creatinine of 1.7. Patient does show signs of perforation he will need to be transferred to a tertiary care facility due to his BMI. 3. We will give him a liter bolus now. ADDENDUM: CT a/p IMPRESSION: Diffuse fatty infiltration of the liver. The stomach is distended with air oral contrast. Questionable duodenal obstruction. Mildly fluid-filled distended small bowel loops in the midabdomen. Increased markings in the peritoneal fat at the level of the root of the mesentery suggestive of inflammatory change. Sigmoid diverticulosis. Small amount of free fluid in the pelvis. -Due to increase WBC, will change abx to zosyn. place NG to LIWS. Give an additional 1 liter bolus of fluids. increase IVF 150 cc/hr. Plan to transfer pt to a tertiary facility due to his BMI and possible need for dx laparoscopy. Tri Bender M.D. Pager: [phone] [facility] [address] [place] [address], [facility], [address] [place] [address] Office: [phone]
--- NOTE | 2017-12-13 07:34 | PN.SURG_ITS ---
Patient Problems: Active and Suspected Problems Mid abdominal pain (Acute) Diverticulitis (Acute) Subjective: Patient has been tachycardic overnight 120s 130s, increased abdominal pain continued, increased white blood cell count 31 - Physical Exam General: Cooperative Abdomen: Soft, Distended - Moderate, Tender - Diffuse, mild rebound, no guarding Extremities: No clubbing, No cyanosis, No edema Vital Signs Temp Pulse Resp BP Pulse Ox 97.4 F L 128 H 16 147/100 H 98 12/13/17 02:24 12/13/17 02:24 12/13/17 02:24 12/13/17 02:24 12/13/17 02:24 Oxygen Delivery Method Room Air Weight: 462 lb 15.532 oz Body Mass Index (BMI) 59.3 Intake and Output for Last 24 Hours 12/11/17 12/12/17 12/13/17 23:59 23:59 23:59 Intake Total 1800 / 1800 Balance 1800 / 1800 Laboratory Tests Past 24 Hrs 12/12/17 12/13/17 12/13/17 18:25 06:28 06:28 WBC 31.0 H* RBC 6.34 H Hgb 19.0 H* Hct 56.3 H MCV 88.8 MCH 30.0 MCHC 33.7 RDW 14.1 RDW Differential 45.5 H Plt Count 262 MPV 12.3 H Immature Gran % (Auto) 0.200 Neut % (Auto) 84.8 H Lymph % (Auto) 5.5 L [place] % (Auto) 9.4 Eos % (Auto) 0.0 Baso % (Auto) 0.1 Absolute Neuts (auto) 26.3 H Absolute Lymphs (auto) 1.69 Total Counted Pending Sodium 143 Potassium 4.7 Chloride 109 H Carbon Dioxide 18.0 L Anion Gap 16 H BUN 14 Creatinine 1.78 H Estim Creat Clear Calc 59.01 Est GFR (MDRD) Af Amer 53 L Est GFR (MDRD) Non-Af 44 L BUN/Creatinine Ratio 7.9 L Glucose 305 H Lactic Acid 1.7 Calcium 11.7 H Medical Necessity - Tobacco Use Smoking Status: Never smoker Tobacco Use: Non-smoker Assessment/Plan All Active Problems Mid abdominal pain (Acute) Diverticulitis (Acute) 47-year-old male with acute sigmoid diverticulitis, GERD/possible gastritis, increased heart rate, increased leukocytosis 1. N.p.o.sips and chips/IV fluids/strict I's and O's. 2. Continue pain throughout the night, increased heart rate, increased leukocytosis will check a stat CT abdomen pelvis without contrast due to his increased creatinine of 1.7. Patient does show signs of perforation he will need to be transferred to a tertiary care facility due to his BMI. 3. We will give him a liter bolus now. ADDENDUM: CT a/p IMPRESSION: Diffuse fatty infiltration of the liver. The stomach is distended with air oral contrast. Questionable duodenal obstruction. Mildly fluid-filled distended small bowel loops in the midabdomen. Increased markings in the peritoneal fat at the level of the root of the mesentery suggestive of inflammatory change. Sigmoid diverticulosis. Small amount of free fluid in the pelvis. -Due to increase WBC, will change abx to zosyn. place NG to LIWS. Give an additional 1 liter bolus of fluids. increase IVF 150 cc/hr. Plan to transfer pt to a tertiary facility due to his BMI and possible need for dx laparoscopy. Tri Bender M.D. Pager: [phone] [facility] [address] [place] [address], [facility], [address] [place] [address] Office: [phone]
[2017-12-13] MEDS: 0.9% Normal Saline 1,000 ML 999 ML IV ×3 (07:37→13:30)
--- NOTE | 2017-12-13 08:39 | NURSING ---
returned from ct scan via bed-pt has eyes closed, responds to questions-a&o x3-painful no meds due for 2 hrs-text sent to dr morales
[2017-12-13] MEDS: HYDROmorphone 1 MG/ML Syringe IV (09:13)
--- NOTE | 2017-12-13 09:32 | NURSING ---
#16 fr [place] placed in right nares without difficulty-drained 1600 thin coffee tinted liquid-to liws at this time-order placed for acute abdomen for verification of tube placement per policy
--- NOTE | 2017-12-13 10:01 | NURSING ---
PT CONTINUES TO BE TACHY IN HE 140'S, PT EYES CLOSED, STATES HE IS PAINFUL 8/10 IN ABDOMEN-ORIENTED X3 COFFEE COLORED THIN LIQUID OUT N/G TO LIWS-RESP ARE AT THIS TIME 24, N/C O2 @ 2L- BP 126/89-138 HR, RESP ARE 24-POX IS 94 ON 2L
--- NOTE | 2017-12-13 10:04 | CASEMGMT ---
Insurance Review for [facility] facilities. Recommendation is for pt to transfer to [facility]. Per [place] website using DFA designation, [facility] is [facility]. Sonya ROJASN RN ACM
--- NOTE | 2017-12-13 10:21 | NURSING ---
attempt to call report on pt to [facility] unsucessful-on hold for 20 minutes
--- NOTE | 2017-12-13 10:27 | NURSING ---
angie called to treasure at [facility]
--- NOTE | 2017-12-13 10:33 | NURSING ---
have been unable to arrange transport due to bariatric carts/size until 1400. updated discussed pt's condition including new orders.
[2017-12-13] MEDS: 0.9% Normal Saline 1,000 ML 200 ML IV (11:00)
[2017-12-13] MEDS: Piperacil/Tazobactam 3.375 GM/50 ML ML IV (11:02)
--- NOTE | 2017-12-13 11:09 | DCINST_ITS ---
- Discharge Diagnoses Current Active Problems: Current Active and Chronic Problems Mid abdominal pain (Acute) Diverticulitis (Acute) Allergies/Adverse Reactions: Allergies corn [[place]] Allergy (Verified 12/12/17 13:39) Other venom-honey bee [bee venom (honey bee)] Allergy (Verified 12/12/17 13:39) Swelling wheat Allergy (Verified 12/12/17 13:39) Other Medications to take at Discharge Ciprofloxacin [Cipro] 500 mg PO BID #14 tablet 12/11/17 Metronidazole [Flagyl] 500 mg PO Q8H #21 tablet 12/11/17 Naproxen [Naprosyn] 500 mg PO BID PRN #20 tablet 12/11/17 Primary Care Physician: Care Physician,No Primary [Primary Care Provider] - Test Results: Test results from this visit will be discussed in further detail at your follow- up appointment, if applicable. Proposed Discharge Date: 12/13/17
--- NOTE | 2017-12-13 11:13 | DS.PCM_ITS ---
Discharge Date and Diagnosis - Problem List Patient Problems: Active and Suspected Problems Mid abdominal pain (Acute) Diverticulitis (Acute) Date of Admission: 12/12/17 Date of Discharge: 12/13/17 - Primary Discharge Diagnosis Active and Suspected Problems Mid abdominal pain (Acute) Diverticulitis (Acute) - Secondary Discharge Diagnosis Chronic Problems Diverticulosis of colon (Chronic) Steatohepatitis, nonalcoholic (Chronic) GERD (gastroesophageal reflux disease) (Chronic) Morbid obesity with BMI of 50.0-59.9, adult (Chronic) Hospital Course and Treatment Imaging Results: Clinical Impression(s) from Imaging Studies Abdomen CT 12/12/17 15:04 IMPRESSION: Distended loops of small bowel in the left upper and mid abdomen which may be consistent with nonspecific focal ileus in association with mesenteric lymphadenitis. No definite evidence for small bowel obstruction transition point. Cannot exclude coexisting mild sigmoid diverticulitis Electronically Signed: Jose Angel Jones MD at 17:31 EDT , Service support , Abdomen/Pelvis CT 12/13/17 07:28 IMPRESSION: Diffuse fatty infiltration of the liver. The stomach is distended with air oral contrast. Questionable duodenal obstruction. Mildly fluid-filled distended small bowel loops in the midabdomen. Increased markings in the peritoneal fat at the level of the root of the mesentery suggestive of inflammatory change. Sigmoid diverticulosis. Small amount of free fluid in the pelvis. Electronically Signed: Saeed Leija MD at 8:36 EDT Tel [phone], Service support , Summary of Care Provided: Patient is a 47 year old gentleman morbidly obese with BMI of 59.4 who was admitted with mid abdominal pain. His initial working diagnosis was that of acute diverticulitis however patient pain continued to worsen. Repeat CAT scan obtained a day after his admission demonstrated The stomach is distended with air oral contrast. Questionable duodenal obstruction. Mildly fluid-filled distended small bowel loops in the midabdomen. Increased markings in the peritoneal fat at the level of the root of the mesentery suggestive of inflammatory change. Sigmoid diverticulosis. Consultation had been placed to general surgery patient was seen by Dr. Bender who recommended placement of ET tube swapping the antibiotics to [facility] and for patient to be transferred to a tertiary care center. Did place a call to [facility] and patient was accepted to the services of Dr. Lopez. Home Medications: Medications to take at Discharge Ciprofloxacin [Cipro] 500 mg PO BID #14 tablet 12/11/17 Metronidazole [Flagyl] 500 mg PO Q8H #21 tablet 12/11/17 Naproxen [Naprosyn] 500 mg PO BID PRN #20 tablet 12/11/17 Primary Care Physician: Care Physician,No Primary [Primary Care Provider] - Disposition: Acute care Hospital Minutes spent on discharge:: 50 Patient Condition:: Fair Medical Necessity - Tobacco Use Smoking Status: Never smoker Tobacco Use: Non-smoker Meaningful Use Info Meaningful Use Diagnoses (Choose all that apply): None applicable Code Visit Inpatient E&M: 94361 Disch Hosp
--- NOTE | 2017-12-13 11:51 | NURSING ---
updated dr alvarez on pt condition and transfer @ 1400- available ambulance/bariatric
[2017-12-13 12:46] LABS: Mean Corp Hgb Conc 33.3 g/gl (32-36); Mean Corpuscular Hgb 29.6 pg (27.0-32.0); Mean Corpuscular Volume 88.9 fL (80-94); Mean Platelet Vol. 11.8 fl (6.2-12.0); Platelet Count 194 K/mm3 (150-450); RBC Distribution Width CV 14.3 % (11.6-14.6); RBC Distribution Width SD 46.3 fl (35.1-43.9); Red Blood Count 6.31 M/mm3 (4.6-6.2)
[2017-12-13 12:49] LABS: Hematocrit 56.1 % (40-54)
[2017-12-13 12:51] LABS: Hemoglobin 18.7 g/dl (13.0-16.5); Scan Indicated on CBC? Y/N YES- FLAGS NOTED; White Blood Count 32.6 K/mm3 (4.4-11.0)
[2017-12-13 12:59] LABS: Anion Gap 13 (5-15); BUN 14 mg/dL (7-18); BUN/Creat Ratio 8.9 RATIO (10-20); Calcium,Total 10.8 mg/dL (8.5-10.1); Chloride 109 mmol/L (98-107); Creatinine, Serum 1.58 mg/dL (0.70-1.30); EST Glomerular Filtration Rate 50 mL/min (>60); Est Glom Filt Rate - Afr Amer 60 mL/min (>60); Estimated Creatinine Clearance 66.48 ml/min; Glucose 330 mg/dL (74-106); Potassium 5.5 mmol/L (3.5-5.1); Sodium Level 141 mmol/L (136-145)
[2017-12-13 13:07] LABS: Differential Comment SCANNED
--- NOTE | 2017-12-13 14:32 | NURSING ---
treasure at [facility] called and updated that pt is leaving now by angelo-
[2017-12-16 14:06] LABS: Pathologist Review Reviewed
== END 2017-12-13 14:05 | disposition short-term general hospital (02) | DRG 392 ==
LOC: ED 15:18 → MS3 18:22
PROVIDERS: Surgery; Admitting Provider Internal Medicine; Emergency Provider Emergency Medicine; Visit Provider Internal Medicine
DX: K57.32 Diverticulitis of large intestine without perforation or abscess without bleeding (principal); K56.7 Ileus, unspecified; K75.81 Nonalcoholic steatohepatitis (NASH); R73.03 Prediabetes; K21.9 Gastro-esophageal reflux disease without esophagitis; E66.01 Morbid (severe) obesity due to excess calories; Z68.43 Body mass index [BMI] 50.0-59.9, adult
CPT/HCPCS: 36415; 74176; 80048; 80053; 83036; 83605; 83690; 85025; 85027; 93005; 99284; J7030; A4216; J0744; J2405